=== PATIENT | female | born 1960 | race Two or more races ===

== ENCOUNTER 2022-05-05 12:29 | Inpatient (IN) | payer MEDICAID ==
[~2022-05-05] VITALS: Ht 154.9 cm; Wt 64.6 kg
[2022-05-05 13:56] LABS: Basophils # (auto) 0 10 ^3/uL (0-0.2); Basophils % (auto) 0.6 % (0.0-2.0); Eosinophils # (auto) 0 10 ^3/uL (0-0.8); Eosinophils % (auto) 0.7 % (0.0-7.0); Hematocrit 45.5 % (36.0-46.0); Hemoglobin 15.6 g/dL (12.2-16.2); Lymphocytes # (auto) 0.7 10 ^3/uL (0.4-5.4); Lymphocytes % (auto) 15.6 % (10.0-50.0); Mean Corpuscular Hemoglobin 29.9 pg (28.0-32.0); Mean Corpuscular Hgb Conc. 34.3 g/dL (32.0-36.0); Mean Corpuscular Volume 87.2 fL (80.0-100.0); Monocytes # (auto) 0.4 10 ^3/uL (0-1.3); Monocytes % (auto) 9.4 % (0.0-12.0); Neutrophils # (auto) 3.5 10 ^3/uL (1.6-8.6); Neutrophils % (auto) 73.7 % (37.0-80.0); Nucleated Red Blood Cells % 0.1 %; Red Blood Cells 5.22 10^6/uL (4.0-5.20); Red Cell Distribution Width 12.9 % (11.8-14.3); White Blood Cell 4.8 10^3/uL (4.4-10.8)
[2022-05-05 14:12] LABS: Albumin 3.5 g/dL (3.4-5.0); BUN/Creatinine Ratio 18.9; Calcium 8.7 mg/dL (8.5-10.1); Potassium 4.2 mmol/L (3.5-5.1)
[2022-05-05 14:15] LABS: Bilirubin, Total 0.6 mg/dL (0.2-1.0); Total Protein 7.1 g/dL (6.4-8.2)
[2022-05-05] MEDS ORDERED: ASPirin 325 MG TAB PO ONE (14:45)
[2022-05-05] MEDS ORDERED: cefTRIAXone 1GM/50ML D5W 50 ML IV ONE (15:00)
[2022-05-05] MEDS ORDERED: AZITHROMYCIN 500MG/ 250ML 250 ML IV ONE (15:00)
[2022-05-05 15:29] LABS: Urine Bacteria MOD /hpf (None Seen); Urine Blood Negative /uL (Negative); Urine Hyaline Cast FEW /lpf (0 - 2); Urine Mucus FEW (None Seen); Urine Specific Gravity 1.021 (1.001-1.035); Urine WBC 10 /hpf (0 - 5)
[2022-05-05] MEDS ORDERED: HYDROcodone-ACET 5/325MG TAB PO PRN (15:30)
[2022-05-05] MEDS ORDERED: IPRATROPIUM BROM 0.5 MG/2.5ML INH SOL NEB SCH (15:30)
[2022-05-05] MEDS ORDERED: NITROGLYCERIN 0.4 MG SL TAB SL PRN (15:30)
[2022-05-05] MEDS ORDERED: ONDANSETRON HCL 4 MG/2 ML VIAL IV PRN (15:30)
[2022-05-05] MEDS ORDERED: MORPHINE SULFATE INJ 2 MG/ml SYRG IV PRN ×2 (15:30)
[2022-05-05 16:04] VITALS: BP 120/71
[2022-05-05] MEDS ORDERED: FUROSEMIDE 20 MG/2 ML VIAL IV ONE (16:30)
[2022-05-05] MEDS: IPRATROPIUM BROM 0.5 MG/2.5ML INH SOL NEB SCH (18:00)
[2022-05-05] MEDS: ALBUTEROL SULF 2.5 MG/0.5ML(0.5%) NEB SOLN NEB SCH (18:00)
[2022-05-05] MEDS ORDERED: ALBUTEROL MEDNEB 2.5 mg/3ml NEB ONE (18:08)
[2022-05-05] MEDS: CARVEDILOL 3.125 MG TAB PO SCH (22:51)
[2022-05-05] MEDS: ATORVASTATIN 20 MG TAB PO SCH (22:52)
[2022-05-05] MEDS: DOCUSATE SOD 100 MG CAP PO SCH (22:52)
[2022-05-06] VITALS (7 sets, daily range): BP systolic 93–121; BP diastolic 47–76
[2022-05-06] MEDS ORDERED: FURO40TA4 PO (05:00)
[2022-05-06] MEDS ORDERED: ASPI-543 PO (05:00)
[2022-05-06] MEDS ORDERED: MELO1TAB56 PO (05:00)
[2022-05-06] MEDS ORDERED: ESCI-34 PO (05:00)
[2022-05-06] MEDS ORDERED: IRBE300T43 PO (05:00)
[2022-05-06] MEDS ORDERED: ALBUTEROL MEDNEB 2.5 mg/3ml NEB ONE ×3 (05:46→18:20)
[2022-05-06 06:19] LABS: Basophils # (auto) 0 10 ^3/uL (0-0.2); Basophils % (auto) 0.6 % (0.0-2.0); Eosinophils # (auto) 0.1 10 ^3/uL (0-0.8); Eosinophils % (auto) 1.4 % (0.0-7.0); Hematocrit 41.9 % (36.0-46.0); Hemoglobin 14.2 g/dL (12.2-16.2); Lymphocytes # (auto) 0.8 10 ^3/uL (0.4-5.4); Lymphocytes % (auto) 23.2 % (10.0-50.0); Mean Corpuscular Hemoglobin 29.6 pg (28.0-32.0); Mean Corpuscular Hgb Conc. 33.9 g/dL (32.0-36.0); Mean Corpuscular Volume 87.2 fL (80.0-100.0); Monocytes # (auto) 0.5 10 ^3/uL (0-1.3); Monocytes % (auto) 12.9 % (0.0-12.0); Neutrophils # (auto) 2.2 10 ^3/uL (1.6-8.6); Neutrophils % (auto) 61.9 % (37.0-80.0); Red Cell Distribution Width 13.2 % (11.8-14.3); White Blood Cell 3.6 10^3/uL (4.4-10.8)
[2022-05-06 06:32] LABS: Calcium 8.5 mg/dL (8.5-10.1); Potassium 3.8 mmol/L (3.5-5.1)
[2022-05-06 06:34] LABS: BUN/Creatinine Ratio 24.4
[2022-05-06] MEDS: ALBUTEROL SULF 2.5 MG/0.5ML(0.5%) NEB SOLN NEB SCH ×3 (07:12→19:15)
[2022-05-06] MEDS: IPRATROPIUM BROM 0.5 MG/2.5ML INH SOL NEB SCH ×3 (07:12→19:15)
[2022-05-06] MEDS: cefTRIAXone 1GM/50ML D5W 50 ML IV SCH (09:04)
[2022-05-06] MEDS: DOCUSATE SOD 100 MG CAP PO SCH ×3 (09:04→21:15)
[2022-05-06] MEDS: ASPirin-EC 81 mg tab PO SCH (09:04)
[2022-05-06] MEDS: CARVEDILOL 3.125 MG TAB PO SCH ×3 (09:04→21:14)
[2022-05-06] MEDS: LISINOPRIL 10 MG TAB PO SCH (09:05)
[2022-05-06] MEDS ORDERED: FUROSEMIDE 20 MG TAB PO SCH (10:00)
[2022-05-06] MEDS: AZITHROMYCIN 500MG/ 250ML 250 ML IV SCH (10:07)
[2022-05-06] MEDS: BUDESONIDE (INHALATION) 0.5 MG/2 ML NEB NEB SCH (19:16)
[2022-05-06] MEDS: ATORVASTATIN 20 MG TAB PO SCH ×2 (21:10→21:14)
[2022-05-07 05:00] VITALS: BP 105/52
[2022-05-07] MEDS ORDERED: ALBUTEROL MEDNEB 2.5 mg/3ml NEB ONE ×2 (07:07→20:05)
[2022-05-07] MEDS: BUDESONIDE (INHALATION) 0.5 MG/2 ML NEB NEB SCH ×2 (07:10→20:27)
[2022-05-07] MEDS: IPRATROPIUM BROM 0.5 MG/2.5ML INH SOL NEB SCH ×4 (07:14→23:54)
[2022-05-07 08:00] VITALS: BP 110/59
[2022-05-07 08:50] VITALS: BP 110/59
[2022-05-07] MEDS: LISINOPRIL 10 MG TAB PO SCH (10:00)
[2022-05-07] MEDS: DOCUSATE SOD 100 MG CAP PO SCH ×3 (10:00→22:00)
[2022-05-07] MEDS: CARVEDILOL 3.125 MG TAB PO SCH ×2 (10:00→21:58)
[2022-05-07] MEDS: cefTRIAXone 1GM/50ML D5W 50 ML IV SCH (10:02)
[2022-05-07] MEDS: methylPREDNISolone SOD SUCC 40 MG/ML VL IV SCH ×2 (10:03→21:58)
[2022-05-07] MEDS: FUROSEMIDE 40 MG/4 ML VIAL IV SCH (10:03)
[2022-05-07] MEDS: ASPirin-EC 81 mg tab PO SCH (10:03)
[2022-05-07] MEDS: AZITHROMYCIN 500MG/ 250ML 250 ML IV SCH (11:09)
[2022-05-07] MEDS: ACETYLCYSTEINE 10 %(100MG/ML) SOL 4ML NEB SCH ×3 (11:56→23:54)
[2022-05-07 12:26] VITALS: BP 113/72
[2022-05-07 17:20] VITALS: BP 113/60
[2022-05-07] MEDS: ALBUTEROL SULF 2.5 MG/0.5ML(0.5%) NEB SOLN NEB PRN (20:26)
[2022-05-07] MEDS: ATORVASTATIN 20 MG TAB PO SCH (21:59)
[2022-05-07 22:35] VITALS: BP 125/70
[2022-05-08 05:20] VITALS: BP 119/71
[2022-05-08] MEDS ORDERED: ALBUTEROL MEDNEB 2.5 mg/3ml NEB ONE ×3 (05:50→17:54)
[2022-05-08] MEDS: ALBUTEROL SULF 2.5 MG/0.5ML(0.5%) NEB SOLN NEB PRN ×2 (07:35→19:10)
[2022-05-08] MEDS: IPRATROPIUM BROM 0.5 MG/2.5ML INH SOL NEB SCH ×3 (07:35→19:12)
[2022-05-08] MEDS: BUDESONIDE (INHALATION) 0.5 MG/2 ML NEB NEB SCH ×2 (07:36→19:11)
[2022-05-08] MEDS: ACETYLCYSTEINE 10 %(100MG/ML) SOL 4ML NEB SCH (07:36)
[2022-05-08 09:00] VITALS: BP 132/65
[2022-05-08] MEDS: AZITHROMYCIN 250 MG TAB PO SCH (09:12)
[2022-05-08] MEDS: FUROSEMIDE 40 MG/4 ML VIAL IV SCH (09:12)
[2022-05-08] MEDS: DOCUSATE SOD 100 MG CAP PO SCH ×2 (09:12→22:20)
[2022-05-08] MEDS: ASPirin-EC 81 mg tab PO SCH (09:12)
[2022-05-08] MEDS: methylPREDNISolone SOD SUCC 40 MG/ML VL IV SCH ×2 (09:12→22:26)
[2022-05-08] MEDS: cefTRIAXone 1GM/50ML D5W 50 ML IV SCH (09:12)
[2022-05-08] MEDS: CARVEDILOL 3.125 MG TAB PO SCH ×2 (09:13→22:21)
[2022-05-08] MEDS: LISINOPRIL 10 MG TAB PO SCH (09:13)
[2022-05-08] MEDS ORDERED: ACETYLCYSTEINE 10 %(100MG/ML) SOL 4ML ONE (12:24)
[2022-05-08 15:03] VITALS: BP 99/61
[2022-05-08 16:43] VITALS: BP 99/61
[2022-05-08 17:44] VITALS: BP 98/50
[2022-05-08 22:00] VITALS: BP 110/53
[2022-05-08] MEDS: ATORVASTATIN 20 MG TAB PO SCH (22:21)
[2022-05-09] MEDS: ACETAMINOPHEN 325 MG TAB PO PRN ×2 (02:18→21:34)
[2022-05-09 02:19] VITALS: BP 103/72
[2022-05-09 05:00] VITALS: BP 114/55
[2022-05-09] MEDS: IPRATROPIUM BROM 0.5 MG/2.5ML INH SOL NEB SCH ×2 (06:00)
[2022-05-09 09:00] VITALS: BP 111/64
[2022-05-09] MEDS: methylPREDNISolone SOD SUCC 40 MG/ML VL IV SCH ×2 (09:06→21:34)
[2022-05-09] MEDS: cefTRIAXone 1GM/50ML D5W 50 ML IV SCH (09:06)
[2022-05-09] MEDS: DOCUSATE SOD 100 MG CAP PO SCH ×2 (09:06→21:34)
[2022-05-09] MEDS: ASPirin-EC 81 mg tab PO SCH (09:06)
[2022-05-09] MEDS: FUROSEMIDE 40 MG/4 ML VIAL IV SCH (09:07)
[2022-05-09] MEDS: LISINOPRIL 10 MG TAB PO SCH (09:07)
[2022-05-09] MEDS: CARVEDILOL 3.125 MG TAB PO SCH ×2 (09:07→21:34)
[2022-05-09] MEDS: AZITHROMYCIN 250 MG TAB PO SCH (09:07)
[2022-05-09] MEDS: BUDESONIDE (INHALATION) 0.5 MG/2 ML NEB NEB SCH ×2 (11:20→18:09)
[2022-05-09 13:00] VITALS: BP 106/64
[2022-05-09 17:00] VITALS: BP 102/58
[2022-05-09] MEDS: ATORVASTATIN 20 MG TAB PO SCH (21:34)
[2022-05-09 22:00] VITALS: BP 113/61
[2022-05-10 05:00] VITALS: BP 105/57
[2022-05-10] MEDS: FUROSEMIDE 40 MG/4 ML VIAL IV SCH (08:29)
[2022-05-10] MEDS: cefTRIAXone 1GM/50ML D5W 50 ML IV SCH (08:29)
[2022-05-10] MEDS: methylPREDNISolone SOD SUCC 40 MG/ML VL IV SCH (08:29)
[2022-05-10] MEDS: ASPirin-EC 81 mg tab PO SCH (08:29)
[2022-05-10] MEDS: DOCUSATE SOD 100 MG CAP PO SCH (08:30)
[2022-05-10] MEDS: AZITHROMYCIN 250 MG TAB PO SCH (08:30)
[2022-05-10] MEDS: CARVEDILOL 3.125 MG TAB PO SCH (08:30)
[2022-05-10] MEDS: LISINOPRIL 10 MG TAB PO SCH (08:30)
[2022-05-10 09:00] VITALS: BP 116/70
[2022-05-10] MEDS ORDERED: ALBUTEROL MEDNEB 2.5 mg/3ml NEB ONE (09:36)
[2022-05-10] MEDS: BUDESONIDE (INHALATION) 0.5 MG/2 ML NEB NEB SCH (09:47)
[2022-05-10] MEDS: ALBUTEROL SULF 2.5 MG/0.5ML(0.5%) NEB SOLN NEB PRN (09:48)
[2022-05-10] MEDS ORDERED: CAR3125T PO (10:20)
[2022-05-10] MEDS ORDERED: FURO1TAB33 PO (10:20)
[2022-05-10] MEDS ORDERED: DOXY150T3 PO ×2 (10:30)
[2022-05-10 11:57] VITALS: BP 116/70
[2022-05-10 13:00] VITALS: BP 106/51
[2022-05-10] MEDS ORDERED: LEVO500T31 PO (14:40)
== END 2022-05-10 17:00 | disposition home or self-care (01) | DRG 190 ==
LOC: ER 12:29 → TELE 15:35 → TELE-EAST 23:55
PROVIDERS: ADMIT Nurse Practitioner Acute Care; ATTEND Nurse Practitioner Acute Care
DX: I21.4 Non-ST elevation (NSTEMI) myocardial infarction (principal); J96.01 Acute respiratory failure with hypoxia; I50.23 Acute on chronic systolic (congestive) heart failure; J44.1 Chronic obstructive pulmonary disease with (acute) exacerbation; Z20.822 Contact with and (suspected) exposure to COVID-19; I11.0 Hypertensive heart disease with heart failure; F15.90 Other stimulant use, unspecified, uncomplicated; F17.210 Nicotine dependence, cigarettes, uncomplicated; E78.5 Hyperlipidemia, unspecified; Z79.899 Other long term (current) drug therapy; Z87.01 Personal history of pneumonia (recurrent)
CPT/HCPCS: 36415; 71045; 71046; 80048; 80053; 81001; 83880; 84484; 85025; 85379; 86141; 87426; 87804; 93005; 93306; 94640; 99291; G0378; J0696

== ENCOUNTER 2024-04-07 15:51 | Emergency (ER) | payer MEDICAID ==
[~2024-04-07] VITALS: Ht 154.9 cm; Wt 68.3 kg
[~2024-04-07 15:51] MED LIST: ASPI-543 PO; CARV-214 PO; ESCI1TAB37 PO; FURO1TAB33 PO; FURO40TA4 PO; IRBE300T43 PO; LEVO500T31 PO; MELO15TA29 PO
[2024-04-07] MEDS: ALBUTEROL SULF 2.5 MG/0.5ML(0.5%) NEB SOLN NEB ONE (16:26)
--- NOTE | 2024-04-07 16:34 | DVH ---
CHEST RADIOGRAPH Indication: cough Technique: Single frontal view of the chest was obtained COMPARISON: CXRP on DOS: 05/06/22, CHEST PORTABLE on DOS: 05/06/22 FINDINGS: Lines and Tubes: None Lungs: Mild congestion Pleura: No effusion. No pneumothorax. Cardiomediastinal contours: Unremarkable Bones: Unremarkable IMPRESSION: Mild congestion
--- NOTE | 2024-04-07 17:02 | ED.PDOC ---
History of Present Illness Chief Complaint: Cough Comments 4 days of coughing. sister ws diagnosed to have influenza. no feer. no sob. pt is a smoker, but has not smoked in a week Time Seen by MD: 15:59 Primary Care Provider: CHEN Jason Notes: Nurses Notes, Medications, Allergies Allergies: Coded Allergies: NO KNOWN ALLERGIES (Unverified , 05/05/22) Home Meds Active Scripts Levofloxacin (Levaquin) 500 Mg Tab, 500 MG PO DAILY for 5 Days, #5 TAB Prov:HELENA BRICE PROOFREADER 05/10/22 Furosemide (Lasix) 20 Mg Tb, 1 TAB PO DAILY, #90 TAB 1 Refill Prov:SALNIRMAL ARRIAZAPH PROOFREADER 05/10/22 Carvedilol (COREG) 3.125 Mg Tab, 3.125 MG PO Q12HR for 60 Days, #120 TAB Prov:HELENA BRICE PROOFREADER 05/10/22 Reported Medications Aspirin (Aspir-Low) 81 Mg Tab, 81 MG PO DAILY for 30 Days, MG 05/06/22 Escitalopram Oxalate (ESCITALOPRAM OXALATE) 20 Mg Tab, 1 TAB PO DAILY, #30 TAB 5 Refills 05/06/22 Furosemide (Furosemide) 40 Mg Tab, 40 MG PO BIDD for 30 Days, MG 05/06/22 Meloxicam (Meloxicam) 15 Mg Tab, 1 TAB PO DAILY, #30 TAB 2 Refills 05/06/22 Irbesartan (IRBESARTAN) 300 Mg Tab, 75 MG PO, TAB 05/06/22 Information Source: Patient Mode of Arrival: Ambulatory Severity: Mild Timing: Days Duration: Since onset Past Medical History PAST MEDICAL HISTORY: CHF, HTN, SD Past Medical History (Other): bipolar Surgical History: Appendectomy CHIPPER History: Denies all CHIPPER Hx, Other Family History Family History: Reviewed,noncontributory to illness Social History Smoker: Cigarettes Alcohol: Denies ETOH Use Drugs: Methamphetamine Lives In: Home Constitutional: denies: chills, diaphoresis, fatigue, fever, malaise, sweats, weakness, others EENTM: denies: blurred vision, double vision, ear bleeding, ear discharge, ear drainage, ear pain, ear ringing, eye pain, eye redness, hearing loss, mouth pain, mouth swelling, nasal discharge, nose bleeding, nose congestion, nose pain, photophobia, tearing, throat pain, throat swelling, voice changes, others Respiratory: reports: cough, wheezing; denies: hemoptysis, orthopnea, SOB at rest, shortness of breath, SOB with excertion, stridor, others Cardiovascular: denies: chest pain, dizzy spells, diaphoresis, Dyspnea on exe rtion, edema, irregular heart beat, left arm pain, lightheadedness, palpitations, PND, syncope, others Gastrointestinal: denies: abdomen distended, abdominal pain, blood streaked bowels, constipated, diarrhea, dysphagia, difficulty swallowing, hematemesis, melena, nausea, poor appetite, poor fluid intake, rectal bleeding, rectal pain, vomiting, others Genitourinary: denies: abnormal vagina bleeding, burning, dyspareunia, dysuria, flank pain, frequency, hematuria, incontinence, pain, , vagina discharge, urgency, others Neurological: denies: dizziness, fainting, headache, left sided numbness, left sided weakness, numbness, paresthesia, pre-existing deficit, right sided numbness, right sided weakness, seizure, speech problems, tingling, tremors, weakness, others Musculoskeletal: denies: back pain, gout, joint pain, joint swelling, muscle pain, muscle stiffness, neck pain, others Integumetry: denies: bruises, change in color, change in hair/nails, dryness, laceration, lesions, lumps, rash, wounds, others Allergic/Immunocompromised: denies: Difficulty Healing, Frequent Infections, Hives, Itching, others Hematologic/Lymphatic: denies: anemia, blood clots, easy bleeding, easy bruising, swollen glands, others Endocrine: denies: excessive hunger, excessive sweating, excessive thirst, excessive urination, flushing, intolerance to cold, intolerance to heat, unexplained weight gain, unexplained weight loss, others Psychiatric: denies: anxiety, bipolar disorder, depression, hopeless, panic disorder, schizophrenia, sleepless, suicidal, others All Other Systems: Reviewed and Negative Physical Exam General Appearance: No Apparent Distress, Normal HEENT: Normal ENT Inspection, Pharynx Normal, TMs Normal Neck: Full Range of Motion, Non-Tender, Normal, Normal Inspection Respiratory: Chest Non-Tender, Lungs Clear, No Accessory Muscle Use, No Respiratory Distress, Rhonchi, Wheezing Cardiovascular: No Edema, No JVD, No Murmur, No Gallop, Normal Peripheral Pulses, Regular Rate/Rhythm Breast Exam: Deferred Gastrointestinal: No Organomegaly, Non Tender, No Pulsatile Mass, Normal Bowel Sounds, Soft Genitalia: Deferred Pelvic: Deferred Rectal: Deferred Extremities: No calf tenderness, Normal capillary refill, Normal inspection, Normal range of motion, Non-tender, No pedal edema Musculoskeletal : Apperance: Normal Neurologic: Alert, life advisor II-XII nml as Tested, No Motor Deficits, Normal Affect, Normal Mood, No Sensory Deficits Cerebellar Function: Normal Reflexes: Normal Skin: Dry, Normal Color, Warm Lymphatic: No Adenopathy Was a procedure done? Was a procedure done?: No Differential Dx Considerations may include: pneumonia, bronchitis, copd exacerbation, asthma exacerbation, chf, FB aspiration, respiratory failure, PE, acute respiratory failure, reactive airway disease, influenza, covid X-Ray, Labs, Meds, VS Vital Signs Date Time Temp Pulse Resp B/P (MAP) Pulse Ox O2 Delivery O2 Flow Rate FiO2 04/07/24 16:37 97.6 55 15 130/85 (100) 95 97.6 04/07/24 16:26 18 95 Room Air* 0 21 04/07/24 16:02 97.9 104 16 140/84 (102) 97 04/07/24 16:02 16 97 Room Air* 0 21 Lab Test 04/07/24 00:00 Range/Units Influenza Type A Antigen Negative Negative Influenza Type B Antigen Negative Negative SARS-CoV-2 Antigen (Rapid) Negative NEGATIVE Current Medications Medications (Trade) Dose Ordered Sig/Michelle Route Start Time Stop Time Status Last Admin Albuterol (Ventolin Medneb) 5 mg ONCE ONCE NEB 04/07/24 16:15 04/07/24 16:16 DC 04/07/24 16:26 Time of 1ST Reevaluation: 17:56 Reevaluation 1ST: Improved Patient Education/Counseling: Diagnosis, Treatment, Prognosis, Need For Follow Up Family Education/Counseling: No Family Present Additional Information pt is much improved after the med neb treatment. she is eager to go home and will quit smoking. pt likely h as undiagnosed copd with acute bronchitis. i will start her on prednisone, zpak, comobivent Departure 1 Departure Time of Disposition: 17:57 Impression: Primary Impression: Bronchitis Additional Impressions: Smoking addiction COPD (chronic obstructive pulmonary disease) Qualified Codes: J44.9 - Chronic obstructive pulmonary disease, unspecified Disposition: HOME / SELF CARE / HOMELESS Condition: Good e-Prescriptions Ipratropium-Albuterol (COMBIVENT RESPIMAT) Respimat Aer 2 PUFF IN Q4HP PRN, #1 AER Prov: TEAGAN BRAVO MD 04/07/24 Prednisone (Prednisone) 20 Mg Tab 20 MG PO DAILY for 5 Days, #5 MG Prov: TEAGAN BRAVO MD 04/07/24 Azithromycin (Zithromax Z-Abelardo) 250 Mg Tab 250 MG PO DAILY for 5 Days, #6 TAB Prov: TEAGAN BRAVO MD 04/07/24 Discharged With: Self Critical Care Note Critical Care Time?: Yes (55 min-critical care time only) Critical care comment: Due to concerns for patients condition deteriorating, the care required my highest level of attention and readiness to intervene. I assessed the patient, reviewed the medical records, ordered the appropriate tests and treatments, then reassessed for results and responsiveness. I communicated with medical personnel and consultants and formulated a plan of care. Total critical care time excludes any procedures Stability Stability form required: No TEAGAN BRAVO MD Apr 07, 2024 17:02
[2024-04-07 17:24] LABS: COVID19 ANTIGEN SOFIA FIA NEGATIVE (NEGATIVE)
[2024-04-07 17:25] LABS: Rapid Influenza A Negative (Negative); Rapid Influenza B Negative (Negative)
[2024-04-07] MEDS ORDERED: AZITTAB PO (18:00)
[2024-04-07] MEDS ORDERED: PRED20TA2 PO (18:00)
[2024-04-07] MEDS ORDERED: IPRAAER6 IN (18:01)
[2024-04-07 18:42] VITALS: BP 134/83; PULSE 89; RESP 16; TEMP 98.4; O2SAT 94
== END 2024-04-07 19:04 | disposition home or self-care (01) ==
LOC: ER 15:51
DX: J44.89 Other specified chronic obstructive pulmonary disease (principal); F17.210 Nicotine dependence, cigarettes, uncomplicated; I11.0 Hypertensive heart disease with heart failure; I50.9 Heart failure, unspecified; I25.2 Old myocardial infarction; F31.9 Bipolar disorder, unspecified; F15.90 Other stimulant use, unspecified, uncomplicated; Z90.49 Acquired absence of other specified parts of digestive tract; Z79.1 Long term (current) use of non-steroidal anti-inflammatories (NSAID); Z79.82 Long term (current) use of aspirin; Z79.899 Other long term (current) drug therapy; Z20.822 Contact with and (suspected) exposure to COVID-19
CPT/HCPCS: 36415; 71045; 87426; 87804; 94640